=== PATIENT | female | born 1995 | race Caucasian/White ===

== ENCOUNTER 2024-10-05 10:49 | Emergency (ER) | payer OTHER, SELFPAY ==
[2024-10-05 10:54] VITALS: BP 145/94; PULSE 88; TEMP 36.7; O2SAT 98; BMI 22.0
--- NOTE | 2024-10-05 11:07 | CT_ITS ---
The [address] [address] Patient Name: TRAVIS REY MRN: [id number] date: 1995 Sex: F Assigned Patient Location: ED.MAIN Current Patient Location: ED.MAIN Accession/Order Number: [id number] Exam Date: 10/05/2024 12:00 Report Date: 10/05/2024 12:08 At the request of: KEYUR PAREDES MD Procedure: CT soft tissue neck w con CT SOFT TISSUE NECK WITH CONTRAST COMPARISON: None CLINICAL DATA: Continued hoarseness and sore throat for the past few weeks despite antibiotics Spiral images were obtained through the neck following 100 mL of Omnipaque 300. This CT exam was performed using one or more following dose reduction techniques: Automated exposure control, adjustment of the mA and/or kV according to patient size, or use of iterative reconstruction technique. No thyroid nodularity is identified. The submandibular and parotid glands appear symmetric. There is no significant enlargement of the adenoids or tonsils. The epiglottis and vocal cords are within normal limits. There is no prevertebral soft tissue swelling. The airway is patent throughout its course with normal appearance the mucosal surfaces. There are shotty cervical lymph nodes, largest in the jugulodigastric region. There is bilateral ethmoid and maxillary mucosal thickening. The imaged mastoid air cells are clear. A dental david is visualized at the last lower molar on the left. The cervical spine is unremarkable. There are no contributory abnormalities involving the upper imaged lungs. CT/CT soft tissue neck w con IMPRESSION: MILD CHRONIC SINUSITIS. SHOTTY CERVICAL LYMPH NODES. NO OTHER ACUTE FINDINGS. Impression dictated by: Claudia Ames M.D.10/05/2024 12:08 PM Dictation Location: [place] [address] Electronically authenticated by: [id number] Y Date: 10/05/2024 12:08
--- NOTE | 2024-10-05 11:08 | ED.GENADUL1 ---
HPI HPI - General Adult General Chief complaint: Upper Respiratory Infection Stated complaint: STREP THROAT Time Seen by Provider: 10/05/24 11:03 Mode of arrival: walk-in Limitations: no limitations History of Present Illness HPI narrative: 29-year-old female presents for a hoarse voice. She has had for 3 weeks and this is never happened before. She was on the whole course of Augmentin and is now on another course of Augmentin. She is a smoker. Symptom has been continuous. Related Data Allergies Allergy/AdvReac Type Severity Reaction Status Date / Time No Known Drug Allergies Allergy Verified 10/05/24 10:58 Opioid HPI Opioid Management Most Recent Opioid Data: No Data to Display Review of Systems ROS Narrative A ten point review of systems is negative except as noted above. PFSH PFSH Social History Little interest or pleasure in doing things: not at all Feeling down, depressed, or hopeless: not at all Exam Narrative Exam Narrative: Nurses note and vital signs reviewed and patient is not hypoxic. General: The patient appears well and in no apparent distress. Patient is resting comfortably on cart. She can whisper but cannot speak out loud. Skin: Warm, dry, no pallor noted. There is no rash noted. Head: Normocephalic, atraumatic Eye: Normal conjunctiva, no drainage Ears, Nose, Mouth, and Throat: oral mucosa is moist. Nares patent. Mouth without vesicles. Uvula midline. No pharyngeal erythema or masses noted. She is handling her oral secretions well. Cardiovascular: Regular Rate and Rhythm Respiratory: Patient is in no distress, no accessory muscle use, lungs are clear to auscultation, no wheezing, rales or rhonchi Back: non-tender GI: Soft and nontender Musculoskeletal: The patient has no evidence of calf tenderness, no pitting edema, symmetrical pulses noted bilaterally Neurological: Awake and alert Psychiatric: Cooperative Constitutional Vital Signs, click to edit/add: Last Vital Signs Temp 98.1 F 10/05/24 10:54 Pulse 88 10/05/24 10:54 Resp 18 10/05/24 10:54 BP 145/94 H 10/05/24 10:54 Pulse Ox 98 10/05/24 10:54 O2 Del Method Room Air 10/05/24 10:54 Course Vital Signs Vital signs: Vital Signs Temperature 98.1 F 10/05/24 10:54 Pulse Rate 88 10/05/24 10:54 Respiratory Rate 18 10/05/24 10:54 Blood Pressure 145/94 H 10/05/24 10:54 Pulse Oximetry 98 10/05/24 10:54 Oxygen Delivery Method Room Air 10/05/24 10:54 Temperature 98.1 F 10/05/24 10:54 Pulse Rate 88 10/05/24 10:54 Respiratory Rate 18 10/05/24 10:54 Blood Pressure 145/94 H 10/05/24 10:54 Pulse Oximetry 98 10/05/24 10:54 Oxygen Delivery Method Room Air 10/05/24 10:54 Medical Decision Making MDM Narrative Medical decision making narrative: Skin shows no explanation for her laryngitis. She has had it for over 3 weeks now. She is referred to ENT. She is already been on an antibiotic twice and been on steroids twice and this has not helped. Treatment diagnosis and follow-up were discussed with the patient. Differential Diagnosis Differential Diagnosis: Laryngitis, vocal cord dysfunction, laryngeal mass Lab Data Lab results reviewed: Yes I reviewed the patient's lab results Labs: Lab Results 10/05/24 Range/Units 11:15 WBC 5.8 (4.0-11.0) 10^3/uL RBC 4.63 (4.20-5.40) 10^6/uL Hgb 13.6 (12.0-16.0) g/dL Hct 40.4 (36.0-48.0) % MCV 87.3 (81.0-99.0) fL MCH 29.4 (26.7-34.0) pg MCHC 33.7 (29.9-35.2) g/dL RDW 13.6 (11.0-15.0) % Plt Count 149 L (150-450) 10^3/uL MPV 11.7 (9.5-13.5) fL Neut % (Auto) 59.6 (43.0-75.0) % Lymph % (Auto) 31.3 (20.5-60.0) % [place] % (Auto) 8.2 (1.7-12.0) % Eos % (Auto) 0.5 L (0.9-7.0) % Baso % (Auto) 0.2 (0.2-2.0) % Neut # (Auto) 3.4 (1.4-6.5) 10^3/uL Lymph # (Auto) 1.8 (1.2-3.8) 10^3/uL [place] # (Auto) 0.5 (0.3-0.8) 10^3/uL Eos # (Auto) 0.0 (0.0-0.7) 10^3/uL Baso # (Auto) 0.0 (0.0-0.1) 10^3/uL Abs Immat Gran (auto) 0.01 (0.00-0.03) 10^3/uL Imm/Tot Granulo (auto) 0.2 (0.0-0.5) % Sodium 139 (136-145) mmol/L Potassium 3.3 L (3.5-5.1) mmol/L Chloride 103 (98-107) mmol/L Carbon Dioxide 25.9 (21.0-32.0) mmol/L Anion Gap 13.4 BUN 11.0 (7.0-18.0) mg/dL Creatinine 0.66 (0.55-1.02) mg/dL Est GFR ( Amer) >60 (>=60 mL/min/1.73m^2) Est GFR (Non-Af Amer) >60 (>=60 mL/min/1.73m^2) BUN/Creatinine Ratio 16.7 Glucose 88 (74-106) mg/dL Calcium 9.3 (8.5-10.1) mg/dL Serum HCG, Qual Negative (NEGATIVE) Imaging Data CT neck soft tissue: Radiologist's impression: ITS Impressions Soft Tissue Neck CT 10/05/24 11:07 IMPRESSION: MILD CHRONIC SINUSITIS. SHOTTY CERVICAL LYMPH NODES. NO OTHER ACUTE FINDINGS. Impression dictated by: Claudia Ames M.D.10/05/2024 12:08 PM Dictation Location: [place] [address] Electronically authenticated by: [id number] Y Date: 10/05/2024 12:08 Discharge Plan Discharge Chief Complaint: Upper Respiratory Infection Clinical Impression: Laryngitis Patient Disposition: Home, Self-Care Time of Disposition Decision: 12:15 Condition: Good Mode of Transportation: Private Vehicle Print Language: Stateless Instructions: Laryngitis (ED) Referrals: Claudia Romero MD [Physician] - 1 week Physician,Non-Staff, [Primary Care Provider] - 1 week
[2024-10-05 11:27] LABS: Basophils Percent Auto 0.2 % (0.2-2.0); Eosinophils Percent Auto 0.5 % (0.9-7.0); Hematocrit 40.4 % (36.0-48.0); Hemoglobin 13.6 g/dL (12.0-16.0); Immature Granulocytes Abs Auto 0.01 10^3/uL (0.00-0.03); Immature Granulocytes Pct Auto 0.2 % (0.0-0.5); Lymphocytes Absolute Auto 1.8 10^3/uL (1.2-3.8); Lymphocytes Percent Auto 31.3 % (20.5-60.0); Mean Corpuscular HGB Conc 33.7 g/dL (29.9-35.2); Mean Corpuscular Hemoglobin 29.4 pg (26.7-34.0); Mean Corpuscular Volume 87.3 fL (81.0-99.0); Mean Platelet Volume 11.7 fL (9.5-13.5); Monocytes Absolute Auto 0.5 10^3/uL (0.3-0.8); Monocytes Percent Auto 8.2 % (1.7-12.0); Neutrophils Absolute Auto 3.4 10^3/uL (1.4-6.5); Neutrophils Percent Auto 59.6 % (43.0-75.0); Platelet Count 149 10^3/uL (150-450); Red Blood Count 4.63 10^6/uL (4.20-5.40); Red Cell Distribution Width 13.6 % (11.0-15.0); White Blood Count 5.8 10^3/uL (4.0-11.0)
[2024-10-05 11:35] LABS: Anion Gap 13.4; BUN Creatinine Ratio 16.7; Calcium 9.3 mg/dL (8.5-10.1); Carbon Dioxide 25.9 mmol/L (21.0-32.0); Chloride 103 mmol/L (98-107); Estimated GFR (African America >60 (>=60 mL/min/1.73m^2); Estimated GFR (Non-African Ame >60 (>=60 mL/min/1.73m^2); Glucose 88 mg/dL (74-106); Potassium 3.3 mmol/L (3.5-5.1); Sodium 139 mmol/L (136-145)
[2024-10-05 11:37] LABS: HCG Qualitative NEGATIVE (NEGATIVE); Internal Control Within Normal Limits
== END 2024-10-05 12:36 | disposition home or self-care (01) ==
PROVIDERS: Emergency Provider Emergency Medicine
DX: J04.0 Acute laryngitis (principal); F17.200 Nicotine dependence, unspecified, uncomplicated
CPT/HCPCS: 36415; 70491; 80048; 84703; 85025; 99284; Q9967